=== PATIENT | male | born 1980 | race Hispanic/Latino ===

== ENCOUNTER 2023-07-10 10:03 | Emergency (ER) | payer OTHER ==
[~2023-07-10] VITALS: Ht 167.6 cm; Wt 67.1 kg
[~2023-07-10 10:03] MED LIST: CLIN-141 PO; IBUP-2070 PO; MUPI22OI2 TP
[2023-07-10 10:07] VITALS: BP 145/95; PULSE 89; RESP 16; O2SAT 96
[2023-07-10] MEDS ORDERED: BACITRACIN 1 EACH PACKET TP ONE (10:59)
[2023-07-10] MEDS ORDERED: IBUPROFEN 600 MG TABLET PO ONE (11:00)
== END 2023-07-10 11:16 | disposition home or self-care (01) ==
LOC: EDH 10:03
DX: Z48.02 Encounter for removal of sutures (principal); Z79.899 Other long term (current) drug therapy

== ENCOUNTER 2024-06-04 13:12 | Emergency (ER) | payer SELFPAY ==
[~2024-06-04] VITALS: Ht 177.8 cm; Wt 72.6 kg
[2024-06-04 13:14] VITALS: BP 159/116; PULSE 90; RESP 20; O2SAT 99
[2024-06-04] MEDS: acetaMINOPHEN 500 MG TABLET PO ONE ×2 (14:03)
== END 2024-06-04 15:39 | disposition home or self-care (01) ==
LOC: EDH 13:12
DX: S06.0X1A Concussion with loss of consciousness of 30 minutes or less, initial encounter (principal); M54.2 Cervicalgia; Z79.899 Other long term (current) drug therapy; W11.XXXA Fall on and from ladder, initial encounter; Y93.89 Activity, other specified; Y92.89 Other specified places as the place of occurrence of the external cause; Y99.8 Other external cause status
CPT/HCPCS: 70450; 72125